=== PATIENT | male | born 1975 ===

== ENCOUNTER 2018-02-03 08:27 | Day surgery (SDC) | payer OTHER ==
[2018-02-03 09:09] VITALS: BMI 24.5
[2018-02-03 09:29] VITALS: TEMP 96.8
[2018-02-03] MEDS ORDERED: Propofol 10 mg/ml Inj (20 ML) ONE ×2 (10:28)
[2018-02-03] MEDS ORDERED: Midazolam 2 MG/2 ML VIAL ONE (10:28)
[2018-02-03] MEDS ORDERED: Lactated Ringer's 1,000 ML IV ONE (10:51)
[2018-02-03 14:48] VITALS: PULSE 72; O2SAT 100
[2018-02-03 14:52] VITALS: BP 122/70; RESP 19
== END 2018-02-03 12:30 | disposition home or self-care (01) ==
LOC: C.ENDO 08:27
PROVIDERS: ATTEND Internal Medicine Gastroenterology
DX: K29.50 Unspecified chronic gastritis without bleeding (principal); R10.32 Left lower quadrant pain; K30 Functional dyspepsia; K29.80 Duodenitis without bleeding; K64.8 Other hemorrhoids; K44.1 Diaphragmatic hernia with gangrene
CPT/HCPCS: 43239; 45378; 88305; 88342; J2001; J2250; J2704; J7120